=== PATIENT | female | born 1975 | race American Indian/Alaskan Native ===

== ENCOUNTER 2018-11-16 19:50 | Emergency (ER) | payer OTHER ==
[2018-11-16 20:00] VITALS: BP 139/80
[2018-11-16] MEDS ORDERED: Ibuprofen 600 MG Tab PO ONE (20:55)
--- NOTE | 2018-11-16 21:04 | EDM.PDOC ---
ED HPI GENERAL MEDICAL PROBLEM - General Chief Complaint: Lower Extremity Injury/Pain Stated Complaint: HURT FOOT BY STEPPING IN A HOLE Time Seen by Provider: 11/16/18 20:15 Source of Information: Reports: Patient History Limitations: Reports: No Limitations - History of Present Illness INITIAL COMMENTS - FREE TEXT/NARRATIVE: ED with crutches, reports falling in hole [employer] and twisting right ankle. Non weightbearing since incident. Prior remote fracture to ankle 7-8 years ago and feels same. no other injury. Has not yet taken anything for pain. Right Ankle Pain Score (Numeric/FACES): 8 - Related Data Allergies Allergy/AdvReac Type Severity Reaction Status Date / Time minocycline Allergy Unknown HIVES/URTIC Verified 11/16/18 20:00 ARIA sulfamethoxazole Allergy Unknown HIVES/URTIC Verified 11/16/18 20:00 [From Bactrim] ARIA trimethoprim [From Bactrim] Allergy Unknown HIVES/URTIC Verified 11/16/18 20:00 ARIA Home Meds: Home Meds . [No Known Home Meds] 11/23/14 [History] Past Medical History Other HEENT History: wears glasses Musculoskeletal History: Reports: Fracture Other Musculoskeletal History: both ankles Endocrine/Metabolic History: Reports: Hypothyroidism - Past Surgical History Female Surgical History: Reports: Hysterectomy Social & Family History - Tobacco Use Smoking Status *Q: Never Smoker Second Hand Smoke Exposure: No - Recreational Drug Use Recreational Drug Use: No Review of Systems - Review of Systems Review Of Systems: ROS reveals no pertinent complaints other than HPI. ED EXAM, GENERAL - Physical Exam Exam: See Below Exam Limited By: No Limitations General Appearance: Alert, Mild Distress Eye Exam: Bilateral Eye: EOMI Ears: Normal External Exam Nose: No: Nasal Drainage Throat/Mouth: Normal Voice Head: Atraumatic, Normocephalic Neck: Full Range of Motion Respiratory/Chest: No Respiratory Distress Cardiovascular: Normal Peripheral Pulses, Regular Rate, Rhythm Extremities: Limited Range of Motion (right ankle increae pain flexion and medial stress. Swelling lateral ankle. ) Psychiatric: Normal Affect Skin Exam: Warm, Dry, Intact, Ecchymosis (elarly lateral ankle) Course - Vital Signs Last Recorded V/S: Last Vital Signs Temp 97.5 F 11/16/18 19:57 Pulse 83 11/16/18 19:57 Resp 18 11/16/18 19:57 BP 139/80 11/16/18 19:57 Pulse Ox 98 11/16/18 19:57 - Orders/Labs/Meds Orders: Active Orders 24 hr Category Date Time Status Ankle Min 3V Rt [CR] Urgent Exams 11/16/18 20:04 Taken Meds: Medications Discontinued Medications Generic Name Dose Route Start Last Admin Trade Name Heather PRN Reason Stop Dose Admin Ibuprofen 600 mg 11/16/18 20:55 11/16/18 21:10 Motrin PO 11/16/18 20:56 600 mg ONETIME ONE Administration - Radiology Interpretation Free Text/Narrative:: [facility] [place] [facility] Final Radiology Report Call: [phone] assistance Online chat: [email or web address] Name: DANETTE ALVAREZ Age: 43Years F Date: 11/16/2018 SSN: -- : [id number] Study: XR ANKLE COMPLETE MIN 3 VIEWS RIGHT Requesting Physician: PEDRO MARTIN Images: 3 Addl Studies: Provided Clinical History: Contrast: Contrast Medium: Contrast Amount: Contrast Method: CONFIDENTIALITY STATEMENT This report is intended only for use by the referring physician, and only in accordance with law. If you received this in error, call [phone]. Page 1 of 1 EXAM: XR Right Ankle EXAM DATE/TIME: 11/16/2018 8:06 PM CLINICAL HISTORY: 43 years old, female; Right; Patient HX: Ankle pain and swelling TECHNIQUE: Imaging protocol: XR Right ankle. Views: 3 or more views. COMPARISON: CR ANKLE RT 3 VIEW 09/03/2011 12:45 PM FINDINGS: Bones/joints: Nondisplaced fracture line through the lateral malleolus. Ankle joint anatomic alignment. Soft tissues: Soft tissue swelling. IMPRESSION: Lateral malleolar fracture. Thank you for allowing us to participate in the care of your patient. Dictated and Authenticated by: Martell Rios MD 11/16/2018 9:05 PM Central Time ([place] & [place] Departure - Departure Time of Disposition: 21:30 Disposition: Home, Self-Care 01 Condition: Good Clinical Impression: Closed left malleolar fracture Qualifiers: Encounter type: initial encounter Qualified Code(s): S82.892A - Other fracture of left lower leg, initial encounter for closed fracture - Discharge Information *PRESCRIPTION DRUG MONITORING PROGRAM REVIEWED*: No *COPY OF PRESCRIPTION DRUG MONITORING REPORT IN PATIENT AUGUSTO: No Instructions: Tibial Fracture, Adult, Walking Boot, Adult Referrals: PCP,None [Ordering Only Provider] - Forms: ED Department Discharge Additional Instructions: crutches, non weight bearing follow up with ortho later this week call to schedule [facility] [phone] or [facility] [phone] Walking boot Ice to ankle elevate to decrease swelling Alternate tylenol 650mg with ibuprofen 600mg every 4 hours as needed for discomfort - My Orders Last 24 Hours: My Active Orders 11/16/18 20:04 Ankle Min 3V Rt [CR] Urgent - Assessment/Plan Last 24 Hours: My Active Orders 11/16/18 20:04 Ankle Min 3V Rt [CR] Urgent
== END 2018-11-16 21:30 | disposition home or self-care (01) ==
LOC: DL.ED 19:50
DX: S82.64XA Nondisplaced fracture of lateral malleolus of right fibula, initial encounter for closed fracture (principal); Z88.2 Allergy status to sulfonamides; Z90.710 Acquired absence of both cervix and uterus; W17.2XXA Fall into hole, initial encounter; X50.1XXA Overexertion from prolonged static or awkward postures, initial encounter
CPT/HCPCS: 73610; 99283; A9270